=== PATIENT | male | born 1980 | race Two or more races ===

== ENCOUNTER 2017-07-02 22:54 | Emergency (ER) | payer MEDICAID ==
[~2017-07-02] VITALS: Ht 180.3 cm; Wt 87.7 kg
[2017-07-02] MEDS ORDERED: HYDR-3965 PO (23:30)
[2017-07-02] MEDS ORDERED: ONDA4TAB9 PO (23:30)
[2017-07-02] MEDS ORDERED: AMOX500C2 PO (23:30)
[2017-07-03 00:03] VITALS: BP 144/101
== END 2017-07-03 00:04 | disposition home or self-care (01) ==
LOC: ER 22:55
DX: K04.7 Periapical abscess without sinus (principal); K02.9 Dental caries, unspecified; K08.9 Disorder of teeth and supporting structures, unspecified; Z79.899 Other long term (current) drug therapy
CPT/HCPCS: 99283